=== PATIENT | male | born 1945 | race Caucasian/White ===

== ENCOUNTER 2021-11-26 11:17 | Outpatient (REF) | payer MEDICARE, SELFPAY | END 2021-11-26 11:18 | disposition home or self-care (01) | LOC: LBN 11:17 | PROVIDERS: Visit Provider Urology ==

== ENCOUNTER 2021-11-27 07:38 | Outpatient (REF) | payer MEDICARE, SELFPAY ==
[2021-11-27 09:34] LABS: Source Nasal/Nares
[2021-11-27 14:57] LABS: COVID-19 PCR Negative (Negative)
== END 2021-11-27 07:39 | disposition home or self-care (01) ==
LOC: LBN 07:38
PROVIDERS: Visit Provider Urology
DX: Z20.822 Contact with and (suspected) exposure to COVID-19 (principal); Z01.818 Encounter for other preprocedural examination
CPT/HCPCS: 87635; U0005